=== PATIENT | female | born 1965 | race African-American/Black ===

== ENCOUNTER 2017-08-13 08:05 | Emergency (ER) | payer BC ==
[~2017-08-13] VITALS: Ht 165.1 cm; Wt 97.8 kg
[~2017-08-13 08:05] MED LIST: AMBIEN10 MG PO; DESYREL 150 MG150 MG PO; ENDOCET 5-3251 EAC1 PO; EXFORGE HCT 5-1 EACH PO; FLEXERIL10 MG PO; INVOKANA300 MG PO; MOTRIN800 MG PO; TRAZODONE HCL100 MG PO; TRAZODONE HCL150 MG PO; TRIBENZOR; TRIBENZOR 20-51 EAC1 PO; VICTOZA0.6 MG/0.1 SC; VICTOZA0.6 MG/0.1 SQ
[2017-08-13 08:49] LABS: BASOPHIL (%) 0.5 % (0-1); EOSINOPHIL (%) 4.9 % (0-5); EOSINOPHIL COUNT 0.4 K/uL (0-0.3); HEMATOCRIT 43.5 % (36.0-46.0); HEMOGLOBIN 14.3 G/DL (11.9-15.5); LYMPHOCYTE (%) 28.3 % (15-42); LYMPHOCYTE COUNT 2.2 K/uL (1.0-2.8); MCH 26.5 PG (29.0-34.0); MCHC 32.9 G/DL (30.0-36.0); MCV 80.7 FL (83-99); MONOCYTE (%) 6.7 % (3-12); MONOCYTE COUNT 0.5 K/uL (0-0.8); NEUTROPHIL (%) 58.6 % (45-76); NEUTROPHIL COUNT 4.6 K/uL (1.8-6.4); PLATELET COUNT 280 K/uL (156-360); RBC DIS.WIDTH-CV 13.1 % (11.8-14.6); RED BLOOD COUNT 5.39 M/uL (3.80-5.20); WHITE BLOOD COUNT 7.8 K/uL (4.1-10.2)
[2017-08-13 08:59] LABS: CHLORIDE 104 mEq/L (99-109)
[2017-08-13 09:00] LABS: SODIUM 140 mEq/L (136-147)
[2017-08-13 09:01] LABS: GLUCOSE 241 mg/dL (70-99)
[2017-08-13 09:05] LABS: CREATININE 1.4 mg/dL (0.6-1.3); GFR ESTIMATE (CALCULATED) 51 mL/min/
[2017-08-13 09:06] LABS: UREA NITROGEN (BUN) 18 mg/dL (9-23)
[2017-08-13 09:55] LABS: APPEARANCE CLEAR ((CLEAR)); BILIRUBIN NEGATIVE; BLOOD NEGATIVE; COLOR YELLOW ((YELLOW)); GLUCOSE (STRIP) >=500; KETONES NEGATIVE; LEUKOCYTES NEGATIVE; NITRITE NEGATIVE; PROTEIN (STRIP) NEGATIVE; SPECIFIC GRAVITY 1.022 (1.000-1.030); UROBILINOGEN 0.2 MG/DL (0.2-1.0)
[2017-08-13 11:00] VITALS: BP 149/67
[2017-08-13] MEDS ORDERED: PERCOCET 5/31 TABLET PO (11:05)
[2017-08-13] MEDS ORDERED: FLEXERIL10 MG PO (11:09)
== END 2017-08-13 11:00 | disposition home or self-care (01) ==
LOC: EME 08:05
PROVIDERS: Emergency Medicine
DX: M54.9 Dorsalgia, unspecified (principal); M79.1 Myalgia; N13.30 Unspecified hydronephrosis; I10 Essential (primary) hypertension; E11.9 Type 2 diabetes mellitus without complications; J45.909 Unspecified asthma, uncomplicated; F32.9 Major depressive disorder, single episode, unspecified; Z90.710 Acquired absence of both cervix and uterus; Z88.5 Allergy status to narcotic agent
CPT/HCPCS: 74176; 80048; 81003; 85025; 99281; 99283

== ENCOUNTER → 2017-08-26 | Outpatient (CLI) | payer BC ==
[~2017-08-26] MED LIST changes: +FARXIGA10 MG PO; +PERCOCET 5/31 TABLET PO; +RESTORIL30 MG PO
== END | disposition home or self-care (01) ==
LOC: CDC 11:47
DX: Z01.810 Encounter for preprocedural cardiovascular examination (principal); I10 Essential (primary) hypertension; E11.9 Type 2 diabetes mellitus without complications; Z79.899 Other long term (current) drug therapy; R00.0 Tachycardia, unspecified
CPT/HCPCS: 93000

== ENCOUNTER → 2017-08-29 | Outpatient (CLI) | payer BC | END | disposition home or self-care (01) | LOC: NUC 11:00 | DX: R94.4 Abnormal results of kidney function studies (principal); N13.4 Hydroureter; N28.89 Other specified disorders of kidney and ureter; R19.02 Left upper quadrant abdominal swelling, mass and lump; Z98.84 Bariatric surgery status | CPT/HCPCS: 78707; A9562; J1940 ==

== ENCOUNTER 2017-08-30 08:39 | Day surgery (SDC) | payer BC ==
[~2017-08-30] VITALS: Ht 165.1 cm; Wt 100.8 kg
[2017-08-30 10:01] VITALS: BP 135/94
[2017-08-30 14:25] VITALS: BP 124/74
[2017-08-30 15:50] VITALS: BP 126/75
== END 2017-08-30 15:50 | disposition home or self-care (01) ==
LOC: SDC
PROVIDERS: Urology
PROC: 0TJ98ZZ Inspection of Ureter, Via Natural or Artificial Opening Endoscopic (ICD-10-PCS; principal; 2017-08-30)
DX: N13.39 Other hydronephrosis (principal); I10 Essential (primary) hypertension; J45.909 Unspecified asthma, uncomplicated; E11.9 Type 2 diabetes mellitus without complications; K21.9 Gastro-esophageal reflux disease without esophagitis
CPT/HCPCS: 82948; J0330; J0690; J1100; J1170; J1580; J2250; J2405; J3010; J7050